=== PATIENT | female | born 1975 | race Caucasian/White ===

== ENCOUNTER 2016-07-14 13:43 | Emergency (ER) | payer OTHER ==
[2016-07-14 13:48] VITALS: RESP 16; TEMP 98.6; O2SAT 99
--- NOTE | 2016-07-14 15:17 | EDPHY ---
H & P Stated Complaint: Swollen ?lymph node under L jawline this morning Time Seen by Provider: 07/14/16 15:09 HPI/ROS: CHIEF COMPLAINT: The lymph node swelling HISTORY OF PRESENT ILLNESS: The patient is a healthy 40-year-old female who comes to the emergency department complaining of swelling below her mandible. She 1st noticed it yesterday morning and has gradually increased in size since then. It is not tender. There is no erythema. She has not had a fever. She has not had a sore throat. No headache or neck pain. History of cancers. No trouble swelling, no intraoral swelling. REVIEW OF SYSTEMS: Constitutional: denies: chills, fever, recent illness, recent injury EENTM: See HPI Respiratory: denies: cough, shortness of breath Cardiac: denies: chest pain, irregular heart rate, lightheadedness, palpitations Gastrointestinal/Abdominal: denies: abdominal pain, diarrhea, nausea, vomiting, blood streaked stools Genitourinary: denies: dysuria, frequency, hematuria, pain Musculoskeletal: denies: joint pain, muscle pain Skin: denies: lesions, rash, jaundice, bruising Neurological: denies: headache, numbness, paresthesia, tingling, dizziness, weakness Hematologic/Lymphatic: denies: blood clots, easy bleeding, easy bruising Immunologic/allergic: denies: HIV/AIDS, transplant EXAM: GENERAL: Well-appearing, well-nourished and in no acute distress. HEAD: Atraumatic, normocephalic. EYES: Pupils equal round and reactive to light, extraocular movements intact, sclera anicteric, conjunctiva are normal. ENT: [place] sized firm mass below left mandible. Nontender, not erythematous. 1 cm deep under skin. NECK: Normal range of motion, supple without lymphadenopathy or JVD. LUNGS: Breath sounds clear to auscultation bilaterally and equal. No wheezes rales or rhonchi. HEART: Regular rate and rhythm without murmurs, rubs or gallops. ABDOMEN: Soft, nontender, normoactive bowel sounds. No guarding, no rebound. No masses appreciated. BACK: No CVA tenderness, no spinal tenderness, step-offs or deformities EXTREMITIES: Normal range of motion, no pitting or edema. No clubbing or cyanosis. NEUROLOGICAL: Cranial nerves II through XII grossly intact. Normal speech, normal gait. 5/5 strength, normal movement in all extremities, normal sensation PSYCH: Normal mood, normal affect. SKIN: Warm, dry, normal turgor, no visible rashes or lesions. Source: Patient Exam Limitations: No limitations - Personal History LMP (Females 10-55): 15-21 Days Ago Current Tetanus Diphtheria and Acellular Pertussis (TDAP): Unsure - Medical/Surgical History Hx Asthma: No Hx Chronic Respiratory Disease: No Hx Diabetes: No Hx Cardiac Disease: No Hx Renal Disease: No Hx Cirrhosis: No Hx Alcoholism: No Other PMH: neg - Family History Significant Family History: No pertinent family hx - Social History Smoking Status: Never smoked Alcohol Use: Sober Drug Use: None Constitutional: Initial Vital Signs Temperature (C) 37 C 07/14/16 13:43 Heart Rate 75 07/14/16 13:43 Respiratory Rate 16 07/14/16 13:43 Blood Pressure 105/81 H 07/14/16 13:43 O2 Sat (%) 99 07/14/16 13:43 O2 Delivery Mode Room Air Allergies/Adverse Reactions: No Known Allergies Allergy (Unverified 07/14/16 13:48) Home Medications: Medication Instructions Recorded NK [No Known Home Meds] 07/14/16 Medical Decision Making ED Course/Re-evaluation: The patient has a firm nontender acute mass underneath her mandible. I think that this is most likely a salivary gland stone. I recommended secretagogs and will have her follow up with ENT on Saturday. The patient understands and agrees with this plan. She she understands we cannot rule out abscess although it is nontender and non erythematous and she has been afebrile and not ill. 36 hours would be extremely rapid for a tumor or cancer to develop . There is no thrill or pulsations to the mass. No trauma. Differential Diagnosis: Partial list of the Differential diagnosis considered include but were not limited to; submandibular mass, salivary gland stone, lymphadenopathy, and although unlikely based on the history and physical exam, I also considered abscess, tumor. Departure - Departure Disposition: Home, Routine, Self-Care Clinical Impression: Salivary gland stone Condition: Fair Instructions: Sialoadenitis (ED) Referrals: [facility] [Primary Care Provider] - As per Instructions Jennifer Cain MD [Medical Doctor] - As per Instructions
[2016-07-14 15:40] VITALS: BP 112/72; PULSE 72
== END 2016-07-14 15:40 | disposition home or self-care (01) ==
DX: K11.5 Sialolithiasis (principal)